=== PATIENT | female | born 1970 | race Caucasian/White ===

== ENCOUNTER 2017-10-23 18:54 | Emergency (ER) | payer SELFPAY ==
[~2017-10-23] VITALS: Ht 157.5 cm; Wt 68.9 kg
--- NOTE | 2017-10-23 19:10 | NUR ---
Juliano rehman in EDM - 10/23/17 at 1915 by FANG PT TRIAGED IN ED BED 8, URINE CUP GIVEN
[2017-10-23 19:11] VITALS: BP 117/82
--- NOTE | 2017-10-23 19:13 | NUR ---
PT TRIAGED IN ED BED 2 BY VICKIE COCHRAN
--- NOTE | 2017-10-23 19:49 | NUR ---
Female Glycerine Plant Operator accompanied female patient for ABSCESS EXAM IN BUTTOCK REGION BY MAYE CHAPMAN.
[2017-10-23] MEDS ORDERED: NACL 0.9% 1,000 ML IV ONE (19:50)
[2017-10-23] MEDS ORDERED: LIDOCAINE/EPI 1% 1:100000 20 ML VIAL INJ ONE ×2 (19:50→20:04)
[2017-10-23] MEDS ORDERED: KETOROLAC 30 MG/ML VIAL IVP ONE (19:50)
--- NOTE | 2017-10-23 20:02 | NUR ---
pt c/o abscess on L buttock since friday. 11/19 pain aching. draining sanguinous fluid. +erythema and cellulitis. NAD noted, denies cp and SOB.
[2017-10-23] MEDS ORDERED: KETOROLAC 30 MG/ML VIAL ONE (20:04)
--- NOTE | 2017-10-23 20:27 | NUR ---
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
[2017-10-23 20:33] LABS: POTASSIUM 3.8 mmol/L (3.5-5.1)
[2017-10-23 20:34] LABS: CARBON DIOXIDE 21.8 mmol/L (21-32)
[2017-10-23 20:44] LABS: TOTAL BILIRUBIN 0.3 mg/dL (0.0-1.0)
[2017-10-23 20:45] LABS: ALBUMIN 3.4 g/dL (3.4-5.0)
[2017-10-23 21:12] LABS: BASOPHILS # (AUTO) 0.1 K/uL (0.00-0.22); BASOPHILS % (AUTO) 0.5 % (0.0-2.0); EOSINOPHILS # (AUTO) 0.2 K/uL (0-0.4); HEMOGLOBIN 14.7 g/dL (12.0-16.0); LYMPHOCYTES # (AUTO) 3.3 K/uL (2.5-16.5); LYMPHOCYTES % (AUTO) 18.9 % (20.5-51.1); MEAN CORPUSCULAR HEMOGLOBIN 31 pg (27-31); MEAN CORPUSCULAR HGB CONC 33 g/dL (33-37); MEAN CORPUSCULAR VOLUME 93.6 fL (80-94); MONOCYTES # (AUTO) 2.1 K/uL (0.8-1.0); MONOCYTES % (AUTO) 12.1 % (1.7-9.3); NEUTROPHILS # (AUTO) 11.9 K/uL (1.8-7.7); NEUTROPHILS % (AUTO) 67.5 % (42.2-75.2); PLATELET COUNT (AUTO) 283 K/uL (140-450); RED CELL DISTRIBUTION WIDTH 13.8 % (11.6-13.7)
[2017-10-23 21:18] LABS: WHITE BLOOD COUNT (AUTO) 17.7 K/uL (4.8-10.8)
--- NOTE | 2017-10-23 21:30 | NUR ---
PT RESTING IN BED. NAD.
[2017-10-23] MEDS ORDERED: PIPERACILLIN/TAZOBACTAM 3.375 GM in DEXTROSE 5% 50 ML IV ONE (21:45)
[2017-10-23] MEDS ORDERED: MORPHINE SULFATE 4 MG/ML SYR IVP ONE (21:45)
[2017-10-23] MEDS ORDERED: MORPHINE SULFATE 4 MG/ML SYR ONE (21:51)
[2017-10-23] MEDS ORDERED: PIPERACILLIN/TAZOBACTAM 3.375 GM VIAL IV ONE (21:52)
[2017-10-23] MEDS ORDERED: LIDOCAINE/PRILOCAINE 2.5% 5 GM TUBE TP ONE ×2 (22:00→22:06)
--- NOTE | 2017-10-23 23:15 | NUR ---
DR. CHAPMAN AT BEDSIDE FOR I&D
--- NOTE | 2017-10-23 23:40 | NUR ---
PER VERBAL ORDER FROM MD, NON-ADHERENT DRESSING APPLIED TO PT LEFT BUTTOCK OVER WOUND.
--- NOTE | 2017-10-24 | NUR ---
Patient discharged with v/s stable. Written and verbal after care instructions given and explained. Patient alert, oriented and verbalized understanding of instructions. Ambulatory with steady gait. All questions addressed prior to discharge. ID band removed. Patient advised to follow up with PMD. Rx of NAPROSYN, KEFLEX,NORCO,BACTRIM given. Patient educated on indication of medication including possible reaction and side effects. Opportunity to ask questions provided and answered.
[2017-10-24 00:09] VITALS: BP 114/75
== END 2017-10-24 | disposition home or self-care (01) ==
LOC: MED 18:54
DX: L02.31 Cutaneous abscess of buttock (principal)
CPT/HCPCS: 10060; 36415; 72193; 80053; 81002; 81025; 85025; 96361; 96365; 96375; 99285; J1885; J2001; J2270; J2543; J7030; J7060; Q9967; 99283